=== PATIENT | female | born 1990 | race Caucasian/White ===

== ENCOUNTER → 2024-01-30 09:21 | Outpatient (CLI) | payer OTHER, MEDICAID, SELFPAY ==
[2024-01-30 10:15] LABS: Add Manual Diff / Slide Review NO; Basophils Absolute Auto 0 /uL (0-100); Basophils Percent Auto 0.3 % (0-2); Eosinophils Absolute Auto 200 /uL (0-450); Eosinophils Percent Auto 2.6 % (2-4); Hematocrit 37.9 % (36-46); Hemoglobin 12.9 g/dL (12.0-16.0); Lymphocytes Absolute Auto 1700 /uL (1100-4500); Lymphocytes Percent Auto 18.2 % (25-40); Mean Corpuscular Hemoglobin 31.1 PG (26-34); Mean Corpuscular Volume 91.4 fL (80-100); Monocytes Absolute Auto 500 /uL (0-900); Monocytes Percent Auto 5.7 % (3-14); Neutrophils Absolute Auto 6800 /uL (1500-7000); Neutrophils Percent Auto 73.2 % (50-75); Platelet Count 191 X10^3/uL (150-400); Red Blood Cell Count 4.15 X10^6/uL (4.0-5.2); Red Cell Distribution Width 13.8 % (11.6-14.8); White Blood Cell Count 9.3 X10^3/uL (4.5-11.0)
[2024-01-30 10:28] LABS: Hemoglobin A1C% w Est Avg Glu 4.9 % (4.0-6.0)
[2024-01-30 12:04] LABS: Urine N gonorrhoeae NOT DETECTED
[2024-01-30 12:16] LABS: Urine Chlamydia NOT DETECTED
[2024-01-30 16:13] LABS: Hepatitis B Surface Antigen NEGATIVE s/c (NEGATIVE)
[2024-01-30 16:31] LABS: HIV 1 & 2 Ab/Ag 4th Gen Combo NEGATIVE (NEGATIVE); Hep C Virus Ab w/Reflex Quant NEGATIVE s/c (NEGATIVE)
[2024-01-31 06:58] LABS: RPR Screen Non Reactive (Non Reactive)
[2024-01-31 09:28] LABS: Varicella IgG Antibody 1632 index (Immune >165)
[2024-02-01 21:10] LABS: AFP, Serum 47.9 ng/mL (.); Estriol, Free 1.49 ng/mL (.); Inhibin A, Dimeric 256.38 pg/mL (.); Inhibin A, MoM 1.64 (.); Maternal Ethnicity Caucasian (.); Maternal Weight 144 lbs (.); Number of Fetuses No (.); OSBR Risk 1 IN 7603 (.); Results Report (.); Test Results *Screen Negative* (.); hCG, MoM 1.06 (.); hCG, Serum 34915 mIU/mL (.)
== END ==
PROVIDERS: PCP Family Medicine; Referring Provider Student in an Organized Health Care Education/Training Program; Visit Provider Student in an Organized Health Care Education/Training Program
DX: Z34.80 Encounter for supervision of other normal pregnancy, unspecified trimester (principal); Z86.32 Personal history of gestational diabetes; O09.299 Supervision of pregnancy with other poor reproductive or obstetric history, unspecified trimester; Z34.82 Encounter for supervision of other normal pregnancy, second trimester; Z3A.17 17 weeks gestation of pregnancy; Z34.01 Encounter for supervision of normal first pregnancy, first trimester
CPT/HCPCS: 36415; 80055; 82105; 82677; 83036; 84702; 86336; 86787; 86803; 86850; 86900; 86901; 87086; 87389; 87491; 87591

== ENCOUNTER → 2024-02-23 12:04 | Outpatient (CLI) | payer OTHER, MEDICAID, SELFPAY ==
--- NOTE | 2024-02-23 12:06 | DI.US.S_ITS ---
PROCEDURE: US OB >= 14 WEEKS FETUS INDICATIONS: ANATOMY OUTSIDE/PRIOR DATING DATA: Last menstrual period (LMP): 09/30/2023. LMP-based estimated date of delivery (SAMSON): 07/06/2024. First dating scan (date and location): 12/21/2023. Estimated date of delivery (SAMSON) from first dating scan: 07/08/2024. The calculations are made using the working SAMSON of 07/06/2024. TECHNIQUE: Real-time scanning was performed of the fetus, with image documentation and biometric measurements. Endovaginal scanning: No COMPARISON: None. FINDINGS: General: A single living intrauterine gestation is present. Presentation: Transverse. Placenta: Placental position is anterior , without previa. Amniotic fluid index: 18.7 cm, normal range is 5-24 cm. Single deepest vertical pocket is 5.8 cm. heart rate: 157 beats per minute. Maternal cervical canal: 6.3 cm long. Normal lower limit is 2.5 cm. biometrics: Biparietal diameter: 4.8 cm, 20 week 3 day Head circumference: 18.2 cm, 20 week 4 day Abdominal circumference: 15.8 cm, 21 week 0 day Femur length: 3.3 cm, 20 week 2 day Clinically estimated gestational age: 20 week 6 day Composite gestational age from present scan: 20 week 4 day Estimated weight and percentile: 368 g, 34 percentile Anatomic survey: Neuro: Ventricles are non-dilated at less than 10 mm. Cisterna magna is normal at 3-11 mm. Cerebellum is normal in size and morphology. Nuchal skin fold: Normal at less than 6 mm between 14-21 weeks gestational age. Face: Nose and lips, facial profile are normal. Spine: No evidence for spina bifida. Heart: 4-chambered heart is present, with normal ventricular outflow tracts. Diaphragm: Diaphragm is intact. Stomach: Left-sided stomach is present. Kidneys: No hydronephrosis. Normal is less than 5 mm in 2nd trimester, less than 7 mm in 3rd trimester. Cord: 3-vessel cord has orthotopic insertion. Bladder: Normal in size. Extremities: All 4 extremities identified. IMPRESSION: Single live intrauterine consistent with 20 week 4 day gestation by current ultrasound Approved by: Myron Pascual M.D. on 02/23/2024 at 16:27
== END ==
LOC: US 12:05
PROVIDERS: PCP Family Medicine; Referring Provider Student in an Organized Health Care Education/Training Program; Visit Provider Student in an Organized Health Care Education/Training Program
DX: Z34.82 Encounter for supervision of other normal pregnancy, second trimester (principal); Z3A.20 20 weeks gestation of pregnancy
CPT/HCPCS: 76811

== ENCOUNTER → 2024-04-03 12:09 | Outpatient (CLI) | payer OTHER, MEDICAID, SELFPAY ==
--- NOTE | 2024-04-03 12:10 | DI.US.S_ITS ---
PROCEDURE: US OB FOLLOW UP INDICATIONS: please re-evaluate growth OUTSIDE/PRIOR DATING DATA: Last menstrual period (LMP): 09/30/2023. LMP-based estimated date of delivery (SAMSON): 07/06/2024. First dating scan (date and location): 12/21/2023. Estimated date of delivery (SAMSON) from first dating scan: 07/08/2024. The calculations are made using the working SAMSON of 07/06/2024. TECHNIQUE: Real-time scanning was performed of the fetus, with image documentation and biometric measurements. Endovaginal scanning: Not performed. COMPARISON: [facility], , OB >= 14 WEEKS FETUS, 02/23/2024, 12:22. FINDINGS: General: A single living intrauterine gestation is present. Presentation: Vertex. Placenta: Placental position is anterior , without previa. Amniotic fluid index: 22.8 cm, normal range is 5-24 cm. Single deepest vertical pocket is 6.9 cm. heart rate: 150 beats per minute. Maternal cervical canal: 4.5 cm long. Normal lower limit is 2.5 cm. biometrics: Biparietal diameter: 26 weeks 6 days Head circumference: 26 weeks 6 days Abdominal circumference: 25 weeks 2 days Femur length: 26 weeks 0 day Clinically estimated gestational age: 26 weeks 4 days Composite gestational age from present scan: 26 weeks 2 days Estimated weight and percentile: 853 g; 13%. Other: Not applicable. IMPRESSION: 1. A single living intrauterine gestation redemonstrated. 2. Interval growth is within normal limits. 3. weight is 13 % for gestational age. 4. TIERRA 22.8 cm (95th percentile).. We strive to produce accurate, complete, and clear reports of imaging services. To assist us in improving patient care, this report was composed using standard report templates and voice recognition software. Therefore, it may contain abnormal punctuation, insertions and/or omissions. Occasional wrong-word or sound-alike substitutions may occur. Though we review the report and make efforts to correct it, we do recommend that the report be read carefully in proper context to recognize any text inaccuracies. Dictated by: Ya Steinberg M.D. on 04/03/2024 at 17:42 Approved by: Ya Steinberg M.D. on 04/03/2024 at 17:49
== END ==
PROVIDERS: PCP Family Medicine; Referring Provider Student in an Organized Health Care Education/Training Program; Visit Provider Student in an Organized Health Care Education/Training Program
DX: O26.842 Uterine size-date discrepancy, second trimester (principal); Z3A.26 26 weeks gestation of pregnancy
CPT/HCPCS: 76816

== ENCOUNTER → 2024-04-10 14:23 | Outpatient (CLI) | payer OTHER, MEDICAID, SELFPAY ==
[2024-04-10 15:55] LABS: Hematocrit 32.6 % (36-46)
[2024-04-10 16:27] LABS: GTT (PREG) 1 Hour PP 50gm Dose 167 mg/dL (76-139)
== END ==
PROVIDERS: PCP Family Medicine; Referring Provider Student in an Organized Health Care Education/Training Program; Visit Provider Student in an Organized Health Care Education/Training Program
DX: Z34.82 Encounter for supervision of other normal pregnancy, second trimester (principal)
CPT/HCPCS: 36415; 82950; 85014; 85018

== ENCOUNTER → 2024-05-01 09:49 | Outpatient (CLI) | payer OTHER, MEDICAID, SELFPAY ==
[2024-05-01 14:22] LABS: Glucose 2 Hour Gest 130 mg/dL (76-155)
[2024-05-01 19:25] LABS: Glucose Tol Interp,Gestational INTERPRETATION
[2024-05-01 19:31] LABS: Glucose 3 Hour Gest 95 mg/dL (76-140)
[2024-05-01 19:31] LABS: Glucose Fasting Gestational 68 mg/dL (76-95)
[2024-05-01 19:31] LABS: Glucose 1 Hour Gest 145 mg/dL (76-180)
== END ==
PROVIDERS: PCP Family Medicine; Referring Provider Student in an Organized Health Care Education/Training Program; Visit Provider Student in an Organized Health Care Education/Training Program
DX: O09.299 Supervision of pregnancy with other poor reproductive or obstetric history, unspecified trimester (principal); R73.09 Other abnormal glucose; Z86.32 Personal history of gestational diabetes
CPT/HCPCS: 36415; 82951; 82952

== ENCOUNTER → 2024-06-07 13:56 | Outpatient (CLI) | payer OTHER, MEDICAID, SELFPAY ==
[2024-06-08 15:14] LABS: Strep Grp B PCR NEG for Grp B Strep
== END ==
PROVIDERS: PCP Family Medicine; Visit Provider Student in an Organized Health Care Education/Training Program
DX: Z36.85 Encounter for antenatal screening for Streptococcus B (principal)
CPT/HCPCS: 87653

== ENCOUNTER 2024-06-29 05:43 | Inpatient (IN) | payer OTHER, MEDICAID, SELFPAY ==
--- NOTE | 2024-06-29 | PATH_ITS ---
[facility] Accession Number: [id number] No. of containers..01 Tissue . 01 Material submitted: . fallopian tube - BILATERAL FALLOPIAN TUBES . 01 Diagnosis: A. BILATERAL FALLOPIAN TUBES, BILATERAL SALPINGECTOMY: Bilateral fimbriated fallopian tubes with full cross sections and benign paratubal cysts. [facility] 07/04/2024 1223 Local . 01 Electronically signed: . Veto Hernandez MD, Pathologist NPI- [id number] . 01 Gross description: . Received in formalin with two patient identifiers and bilateral fallopian tubes, are two unoriented fimbriated fallopian tubes (7.6 x 1.0 cm and 7.2 x 1.1 cm). Both tubes have violaceous, smooth serosa with cystic structures measuring up to 0.2 cm in greatest dimension, filled with cloudy serous fluid. The lumens are stellate and unremarkable. Wedding Photographer sections to include one-half bisected fimbriae and cross sections are submitted as follows: . A1: Longer fallopian tube. A2: [place] fallopian tube. ([id number]) /MRV 07/03/2024 1407 Local . 01 Pathologist provided ICD-10: Z98.891, Z3A.39 . 01 CPT . 213574 Specimen Comment: A courtesy copy of this report has been sent to [facility] Pathology Performed at: [address] [address], [place], [place] [id number] MD Kameron Rose MD Phone: [phone]
[2024-06-29 06:30] LABS: Add Manual Diff / Slide Review NO; Basophils Absolute Auto 100 /uL (0-100); Basophils Percent Auto 0.7 % (0-2); Eosinophils Absolute Auto 200 /uL (0-450); Eosinophils Percent Auto 1.3 % (2-4); Hematocrit 35.9 % (36-46); Hemoglobin 12.1 g/dL (12.0-16.0); Lymphocytes Absolute Auto 2500 /uL (1100-4500); Lymphocytes Percent Auto 19.9 % (25-40); Mean Corpuscular HGB Conc 33.7 % (30-36); Mean Corpuscular Hemoglobin 30.4 PG (26-34); Mean Corpuscular Volume 90.3 fL (80-100); Monocytes Absolute Auto 1000 /uL (0-900); Monocytes Percent Auto 8.2 % (3-14); Neutrophils Absolute Auto 9000 /uL (1500-7000); Neutrophils Percent Auto 69.9 % (50-75); Platelet Count 197 X10^3/uL (150-400); Red Blood Cell Count 3.97 X10^6/uL (4.0-5.2); White Blood Cell Count 12.8 X10^3/uL (4.5-11.0)
[2024-06-29] MEDS: LACTATED RINGERS 1,000 ML 999 ML IV (06:30)
[2024-06-29] MEDS: CITRIC ACID/SODIUM CITRATE 15 ML SOLUTION 30 ML PO (07:27)
--- NOTE | 2024-06-29 07:43 | PM.OBHP.1 ---
OB HPI Date/Time Date of admission: 06/29/24 Date Patient Seen: 06/29/24 Time Patient Seen: 07:44 History of Present Condition Chief complaint: Repeat w/[place] salpingectomy : 4 Para: 2 Estimated Date of Delivery: 07/06/24 Estimated Gestational Age (weeks): 39+0 Narrative: Janna Beach is a 33 year old female Comments: admitted for planned repeat with bilateral salpingectomy for sterilization. Reports irregular contractions, denies vaginal bleeding or leaking fluid. Indications Operative indications ( section): previous uterine surgery History of Present care: good care Dating criteria: LMP confirmed by 1st trimester US Ultrasounds: normal mid trimester US Narrative: Ultrasound Ultrasound Details:: Dating US 12/21/23: [place] IUP with CRL 4.6cm (11+3wks) with FHR 157; normal appearing uterus, cervix, bilateral ovaries Anatomy sono 02/23/24: normal anatomy, anterior placenta, EFW 34%ile Expected Delivery Route/Plan repeat with bilateral salpingectomy Specific Issues/Plans - Girl Borderline polyhydramnios--> Size > dates at 25wks prompted repeat growth US 04/03/24; EFW 13%ile, TIERRA 22 Abnormal 1hr (167), normal 3hr GTT (68/145/130/95) Planned repeat C/S (C/S #3)--> scheduled for 06/29/24 Desires sterilization--> signed consent 03/27/24 Hx GDMA1 in G3--> [x] hgbA1C- 4.9; [x] 1hr GTT at 24wks [x] quad screening- neg S/O Ramin Assigned to [facility] Preadmission Labs Blood type: O (+) positive -: Antibody screen: negative, Cystic fibrosis screen: unknown, GBS status: negative, HBsAG: negative, HIV: negative, HSV 1: unknown, HSV 2: unknown and RPR/VDLR: negative -: Chlamydia screen: not detected and Gonorrhea screen: not detected -: Rubella: immune and Varicella: immune HCT: 35.9 HCAB: negative PAP: Normal Quad screen: Normal 1 hr GTT: 167 3 hr GTT: 3 hr (negative) Evaluation Evaluation Baseline heart rate: 145 Variability: Moderate (11-25) monitor accelerations: Present Monitor Decelerations: Absent Category of Tracing: Reactive PFSH Medical History (Updated 04/24/24 @ 14:08 by Tyler Mullen MD) Headache Scoliosis (~1996) Eczema Diet controlled gestational diabetes mellitus Anxiety Migraine without aura Kidney infection Surgical History (Updated 01/11/24 @ 19:01 by Sandra Huerta) Anesthesia [place] teeth extracted Previous section Family History Grandmother Heart attack Obesity Grandmother Colon cancer Grandfather Pacemaker Social History marital status: unmarried,living together number of children: 2 household members: significant other and children lives independently: Yes caregiver/support person: Yes housing: house pets and animals: No education level: vocational occupational status: employed current occupational exposures/hazards: No special patricia needs: No travel history: recent (domestic only) seatbelt use: always helmet use: Yes water heater temp set < 120 deg: Yes working smoke detector in home: Yes fire extinguisher in home: Yes carbon monox detector in home: Yes firearms in home: Yes firearms unloaded and locked: Yes do you feel safe at home: Yes Smoking Status: Former smoker (briefly when she was 18 years old) second hand exposure: Yes (s/o vapes, but not around pt or children) alcohol intake: former (occasionally when not ) substance use type: does not use during the past year weight has: remained stable well-balanced diet: daily or most days daily servings fruits/ve-4 caffeine: Yes (1 cup coffee in AM) Type(s) of exercise: regular exercise Meds Home Medications and Allergies Home Medications Medication Instructions Recorded Confirmed Type vitamin-ferrous sulfate tab PO 12/13/23 06/21/24 History 27 mg iron-folic acid 0.8 mg tablet Allergies Allergy/AdvReac Type Severity Reaction Status Date / Time No Known Drug Allergies Allergy Unverified 06/21/24 11:40 Review of Systems Review of Systems ROS: Yes All systems reviewed with the patient and are negative except as otherwise documented OB Exam Vital signs Blood Pressure: 110/68 Pulse Rate: 81 HENMT Head: normal to inspection Resp Effort & Inspection: normal respiratory effort and able to speak in complete sentences Cardio Rate: regular rate Rhythm: regular rhythm Extremities Lower extremity: Yes normal to inspection GI Other: gravid, nontender, nondistended Objective Labs 06/29/24 06:15 Labs: Laboratory Results - last 24 hr 06/29/24 06:15 WBC 12.8 H RBC 3.97 L Hgb 12.1 Hct 35.9 L MCV 90.3 MCH 30.4 MCHC 33.7 RDW 14.0 Plt Count 197 Neut % (Auto) 69.9 Lymph % (Auto) 19.9 L [place] % (Auto) 8.2 Eos % (Auto) 1.3 L Baso % (Auto) 0.7 Neut # (Auto) 9000 H Lymph # (Auto) 2500 [place] # (Auto) 1000 H Eos # (Auto) 200 Baso # (Auto) 100 Blood Type O Positive Antibody Screen Negative Assessment and Plan Assessment and Plan Assessment and Plan narrative: 33yo at 39+0wks admitted for repeat with bilateral salpingectomy. -CBC, T&S on admission -NST on admission -plan for neuraxial anesthesia -GBS neg -PPH risk low -VTE risk low, SCDs with epidural -move to OR for delivery once all teams ready consent: It was explained to the patient that a section is a surgery to deliver the baby through an incision in the abdominal wall and uterus.? All procedures can be associated with risk and unforeseen complications, which can be immediate or delayed.? Risks and complications of section include, but are not limited to:? infection of the uterus, pelvic organs, or skin; inadvertent injury to internal organs such as the bowel, bladder, or possibly even the baby; blood loss, transfusion, and/or life-threatening hemorrhage requiring hysterectomy; blood clots in the legs, pelvic organs, or lungs; adverse reaction to medications or anesthesia during surgery; development of placenta accreta spectrum in a subsequent ; and increased risk of section in a subsequent . Time-Based Coding :: [20min] spent with patient and on the chart (including review of chart, obtaining history, exam, reviewing outside data, placing orders, documenting exam and treatment plan, and counseling patient) on [06/29/24].
[2024-06-29 07:50] VITALS: BP 110/68; PULSE 81
[2024-06-29] MEDS: CEFAZOLIN 2 GM/100 ML PREMIX 100 ML IV (07:50)
--- NOTE | 2024-06-29 07:57 | SUR.OPER ---
Supine on Padded OR bed, head on pillow, safety belt at thigh, arms secured on padded arm boards at <90 degrees abduction. Bump under right buttock. Legs uncrossed with pillow under knees, gel pad to heels, tape over blanket to lower legs.
[2024-06-29] MEDS: ACETAMINOPHEN IV 1,000 MG/100 ML VIAL 400 MG IV (08:00)
--- NOTE | 2024-06-29 08:38 | SUR.OPER ---
viable baby girl born at 0838
[2024-06-29 09:35] VITALS: BP 143/100; PULSE 68; RESP 17; TEMP 37.2; O2SAT 100
--- NOTE | 2024-06-29 09:35 | P.OP_ITS ---
Operative Date/Time/Diagnoses Date of procedure: 06/29/24 Time of procedure: 07:45 Pre-op diagnosis: 1. [place] intrauterine gestation at 39+0wks 2. History of prior section 3. Undesired future fertility Post-op diagnosis: same Procedure & Clinicians Procedure: Repeat low transverse section Bilateral salpingectomy Same procedure as scheduled: Yes Indications: 33yo at 39+0 weeks EGA with history of prior and undesired future fertility, admitted for planned repeat with bilateral salpingectomy for sterilization Surgeon: Mona Bailey Click Yes if Unassisted: No Water Main Pipe Layer: Leanna Krishna Reason for Water Main Pipe Layer: Water Main Pipe Layer was necessary for timely, efficient, and safe completion of the procedure. Anesthesia Type: Spinal Operative Notes Findings: Significant scar tissue noted in the subcutaneous planes. Midline bladder adhesion noted to the uterus. Normal-appearing uterus and bilateral fallopian tubes and ovaries. Clear fluid noted with AROM. Delivery productive of a viable female infant in cephalic presentation with APGARS 10/9 and weighing 2654g. Specimen(s): tubes/segments of tubes Intraoperative meds administered: Duramorph Applied: Catheter Estimated Blood Loss (mL): 700 Blood products transfused: none Procedure in detail: The risks, benefits, indications and alternatives of the procedure were reviewed with the patient and informed consent was obtained. The patient was taken to the operating room where spinal anesthesia was obtained without difficulty and was found to be adequate. Sequential compression devices were placed bilaterally for VTE prophylaxis. She was then prepped and draped in the normal, sterile fashion in the dorsal supine position with a leftward tilt. She received 2g Ancef for surgical prophylaxis. A Pfannenstiel skin incision was then made with the scalpel and carried through to the underlying layer of fascia. The fascia was incised in the midline and the incision extended laterally with the Morfin scissors. The superior aspect of the incision was grasped, tented up with Jessika clamps and the rectus muscles were dissected off bluntly, aided with knife. The rectus muscles were carefully at the midline, and the peritoneum was identified. The bladder was noted to be adhesed to the anterior uterine wall, thus this was carefully sharply dissected off. The Dany retractor was then inserted. The lower uterine segment was incised in a transverse fashion with the scalpel. The uterine incision was then extended manually in a cephalad/caudad direction, aided with bandage scissors at the left hysterotomy in a J-shape. The amniotic sac was artificially ruptured, productive of clear fluid. The ?s head delivered atraumatically through the hysterotomy without difficulty, followed by the body.? The cord was doubly clamped and cut after a 30sec delay with the handed off to the waiting pediatrics team. The placenta was then removed spontaneously with gentle traction on the umbilical cord. The uterus was exteriorized and cleared of all clots and debris. The uterine incision was repaired with 0-vicryl in a running, locked fashion. The lateral extension was then closed with 0-vicryl in a running fashion with excellent hemostasis achieved. The right fallopian tube was then grasped with a Everson clamp, and the mesosalpinx was clamped, cauterized, with the Powerseal device. The right fallopian tube was then ultimately excised at the cornua with the Powerseal. The same procedure was then performed on the left fallopian tube. All pedicles were noted to be hemostatic. The uterus was returned to the abdomen and the hysterotomy was again noted to be hemostatic. The paracolic gutters were cleared of all clot and debris, and the fallopian tube pedicles were reinspected to assure hemostasis. The Dany retractor was then removed. The fascia was reapproximated with 0-PDS in a running fashion. The subcutaneous layer was closed with 3-0 vicryl in simple, interrupted sutures. The skin was closed with 4-0 monocryl in a subcuticular fashion. The incision was then dressed with steri-strips and a pressure dressing was applied. At the completion of the case, a Crede maneuver was performed with good uterine tone and minimal vaginal bleeding noted.? The patient tolerated the procedure well. Sponge, lap and needle counts were correct x3. The patient was taken to the recovery room in stable condition. Complications: none Post-operative Condition: stable Disposition: PACU Aftercare: routine postop
[2024-06-29 09:40] VITALS: BP 99/45; PULSE 64; RESP 15; O2SAT 100
[2024-06-29 09:45] VITALS: BP 90/62; PULSE 71; RESP 16; TEMP 36.7; O2SAT 100
[2024-06-29 09:50] VITALS: BP 90/64; PULSE 65; RESP 16; O2SAT 100
[2024-06-29] MEDS: KETOROLAC 30 MG/ML VIAL IV ×2 (15:25→21:47)
[2024-06-29] MEDS: ACETAMINOPHEN 325 MG TABLET 650 MG PO (15:26)
[2024-06-29 16:00] VITALS: BP 106/71; PULSE 83; RESP 17; TEMP 37.2
[2024-06-29] MEDS: OXYCODONE IR 5 MG TABLET PO (20:19)
[2024-06-30] MEDS: ACETAMINOPHEN 325 MG TABLET 650 MG PO ×3 (00:49→11:54)
[2024-06-30] MEDS: KETOROLAC 30 MG/ML VIAL IV (03:34)
[2024-06-30 06:06] LABS: Add Manual Diff / Slide Review NO; Basophils Absolute Auto 0 /uL (0-100); Basophils Percent Auto 0.3 % (0-2); Eosinophils Absolute Auto 200 /uL (0-450); Eosinophils Percent Auto 1.4 % (2-4); Hemoglobin 10.6 g/dL (12.0-16.0); Lymphocytes Absolute Auto 1900 /uL (1100-4500); Lymphocytes Percent Auto 12.8 % (25-40); Mean Corpuscular HGB Conc 33.1 % (30-36); Mean Corpuscular Hemoglobin 29.9 PG (26-34); Mean Corpuscular Volume 90.3 fL (80-100); Monocytes Absolute Auto 1000 /uL (0-900); Monocytes Percent Auto 6.9 % (3-14); Neutrophils Absolute Auto 11700 /uL (1500-7000); Neutrophils Percent Auto 78.6 % (50-75); Platelet Count 180 X10^3/uL (150-400); Red Blood Cell Count 3.54 X10^6/uL (4.0-5.2); Red Cell Distribution Width 14.3 % (11.6-14.8); White Blood Cell Count 14.9 X10^3/uL (4.5-11.0)
--- NOTE | 2024-06-30 10:00 | P.DS_ITS ---
Discharge Providers Provider Date of admission: 06/29/24 05:43 Discharge Date: 06/30/24 Primary care physician: Deana Barriga MD Consults: 06/29/24 11:58 Consult to Services Coordinator Routine Comment: Discharge provider: Mona Bailey DO Summary Hospital Course Date Patient Seen: 06/30/24 Time Patient Seen: 10:00 Diagnoses: Term gestation at 39+0wks History of prior section Undesired future fertility Hospital Course: 33yo [id number] admitted at 39+0wks for planned repeat section with bilateral salpingectomy for sterilization. Her delivery was uncomplicated, and productive of a viable female infant. Her course was unremarkable. On post-op day #1, she was ambulating, tolerating regular diet, voiding spontaneously with minimal lochia. Her pain was well controlled with oral medications, thus she was discharged to home on post-op day #1. Peripartum Data Delivery Method: Section Procedures: External monitoring Spinal anesthesia section sterilization complications: none Discharge Diagnosis (1) delivery delivered: Status: Acute (2) Encounter for sterilization: Status: Acute Status at Discharge Cognitive/behavioral status at discharge: oriented Functional status at discharge: independent ambulation Overall status at discharge: patient is progressing back to baseline Time Spent with Patient Time attestation: Total time spent providing and/or coordinating discharge services: Time spent: Less than 30 minutes Objective Labs 06/30/24 05:54 Labs: Laboratory Results - last 24 hr 06/30/24 05:54 WBC 14.9 H RBC 3.54 L Hgb 10.6 L Hct 32.0 L MCV 90.3 MCH 29.9 MCHC 33.1 RDW 14.3 Plt Count 180 Neut % (Auto) 78.6 H Lymph % (Auto) 12.8 L [place] % (Auto) 6.9 Eos % (Auto) 1.4 L Baso % (Auto) 0.3 Neut # (Auto) 48388 H Lymph # (Auto) 1900 [place] # (Auto) 1000 H Eos # (Auto) 200 Baso # (Auto) 0 Exam Vital Signs (past 8 hours): Oxygen Delivery Method Room Air vitals reviewed in OBIX, within normal parameters Const General: cooperative, healthy appearing, comfortable and No acute distress Resp Effort & Inspection: normal respiratory effort GI Inspection: normal to inspection Other: fundus firm and nontender at U-2 Skin General: no rashes or lesions noted Other: Pfannenstiel incision with blood-stained steri-strips but no active bleeding from the incision; incision otherwise well approximated with no erythema Neuro General: patient alert and patient awake Extrem General: normal to inspection, no pedal edema and no calf tenderness Psych Mood: congruent mood Affect: normal affect Discharge Plan Discharge Plan Patient Disposition: Home Provider Discharge Comment: Take ibuprofen 600mg every 6hrs and acetaminophen 650mg every 6hrs for pain. Use oxycodone 5mg every 4hrs as needed for breakthrough pain. Avoid lifting greater than 20lbs for at least 6 weeks. Avoid placing anything in the vagina for 6 weeks. Discharge orders & Medications Prescriptions: New oxycodone 5 mg tablet 5 mg PO Q4H PRN (Reason: pain) Qty: 10 0RF Continued vit-ferrous sulfat-FA 27 mg iron- 0.8 mg tablet PO Follow up/Referrals: Mona Bailey DO [Physician] - (Call our clinic on Monday 07/02 for your appointments to be scheduled.) Diet/Activity/Treatments Diet: Diet as Tolerated Activity: As tolerated. Skin/Wound/Dressing Care Report to your healthcare provider any signs of infection, such as:: chills, fever, increased pain, unusual drainage and unusual redness Dressing: Steri-strips will fall off after 1 week. You may shower normally while they are in place. Visit Report/Discharge Packet Instructions: DI for , DI for Prescription Opioid Use Stand Alone Forms: Patient Portal/API, Stroke Signs & Symptoms Discharge Data Primary Care Provider: Deana Barriga
[2024-06-30] MEDS: DOCUSATE 100 MG CAPSULE PO (10:19)
[2024-06-30] MEDS: IBUPROFEN 600 MG TABLET PO (10:19)
== END 2024-06-30 12:20 | disposition home or self-care (01) | DRG 539 ==
PROVIDERS: Admitting Provider Student in an Organized Health Care Education/Training Program; PCP Family Medicine; Referring Provider Student in an Organized Health Care Education/Training Program; Visit Provider Student in an Organized Health Care Education/Training Program
PROC: 10D00Z1 Extraction of Products of Conception, Low, Open Approach (ICD-10-PCS; CPT 59514; principal; 2024-06-29 07:45)
DX: O34.211 Maternal care for low transverse scar from previous cesarean delivery (principal); Z3A.39 39 weeks gestation of pregnancy; Z37.0 Single live birth; Z30.2 Encounter for sterilization
CPT/HCPCS: 36415; 59050; 85025; 86850; 86900; 86901; J0136; J0690; J1885; J2274; J2405; J2704; J3010